=== PATIENT | male | born 1990 | race African-American/Black ===

== ENCOUNTER 2024-11-05 21:26 | Emergency (ER) | payer SELFPAY ==
[~2024-11-05] VITALS: Ht 185.4 cm; Wt 108.0 kg
[2024-11-05 21:58] VITALS: O2SAT 98
[2024-11-05] MEDS: IBUPROFEN 600MG TABLET PO ONE (23:05)
[2024-11-05] MEDS ORDERED: IBUP-1455 MT (23:30)
[2024-11-05 23:40] VITALS: BP 124/86; PULSE 64; RESP 14; TEMP 36.9; O2SAT 98
== END 2024-11-05 23:44 | disposition home or self-care (01) ==
LOC: ER 21:26
DX: M25.531 Pain in right wrist (principal); M25.532 Pain in left wrist
CPT/HCPCS: 73100; 99283